=== PATIENT | female | born 1950 | race Caucasian/White ===

== ENCOUNTER 2017-04-27 08:18 | Emergency (ER) | payer MEDICARE, BC, OTHER ==
[2017-04-27] MEDS ORDERED: ONDANSETRON 4 MG TAB.RAPDIS PO ONE (08:58)
--- NOTE | 2017-04-27 08:58 | ER Document Report ---
ED Extremity Problem, Upper - General Mode of Arrival: Ambulatory Information source: Patient TRAVEL OUTSIDE OF THE [place] IN LAST 30 DAYS: No - HPI Patient complains to provider of: Left, Elbow Onset: Just prior to arrival Recent injury: Possibly Context: Fall <JENNIFER KENDALL - Last Filed: 04/27/17 10:30> <MONTEZTED - Last Filed: 04/27/17 16:03> - General Chief Complaint: Arm Injury Stated Complaint: FALL/ARM INJURY Time Seen by Provider: 04/27/17 08:49 Notes: Patient is a 66-year-old female who presents to the emergency department today with complaints of left upper extremity pain after a fall just prior to arrival. Patient states that she tripped over her dog on her way out the door this morning. Patient also has a skin tear to her right forearm. Patient states her tetanus is up to date. Patient complains of pain with extension of the left elbow. (JENNIFER KENDALL) - Related Data Allergies/Adverse Reactions: No Known Allergies Allergy (Verified 04/27/17 08:24) Home Medications: Current Home Medications Multivitamin [Multivitamins] 1 tab PO DAILY 04/27/17 [History] Past Medical History - General Information source: Patient, [facility] Records - Social History Smoking Status: Never Smoker Cigarette use (# per day): No Chew tobacco use (# tins/day): No Frequency of alcohol use: None Drug Abuse: None Lives with: Family Family History: Reviewed & Not Pertinent Patient has suicidal ideation: No Patient has homicidal ideation: No - Past Medical History Cardiac Medical History: Reports: Hx Coronary Artery Disease, Hx Hypercholesterolemia, Hx Hypertension Past Surgical History: Reports: Hx Cardiac Surgery - pacemaker, Hx Orthopedic Surgery - right ankle <JENNIFER KENDALL - Last Filed: 04/27/17 10:30> Review of Systems - Review of Systems Constitutional: No symptoms reported EENT: No symptoms reported Cardiovascular: No symptoms reported Respiratory: No symptoms reported Gastrointestinal: No symptoms reported Genitourinary: No symptoms reported Female Genitourinary: No symptoms reported Musculoskeletal: See HPI, Joint pain - left elbow Skin: No symptoms reported Hematologic/Lymphatic: No symptoms reported Neurological/Psychological: No symptoms reported -: Yes All other systems reviewed and negative <JENNIFER KENDALL - Last Filed: 04/27/17 10:30> Physical Exam <JENNIFER KENDALL - Last Filed: 04/27/17 10:30> <TED ABDUL - Last Filed: 04/27/17 16:03> - Vital signs Vitals: Temp Pulse Resp BP Pulse Ox 97.8 F 59 L 20 99/67 L 96 04/27/17 08:23 04/27/17 08:23 04/27/17 08:23 04/27/17 08:23 04/27/17 08:23 - Notes Notes: PHYSICAL EXAM GENERAL: Alert, interacts well. Appears mildly uncomfortable. HEAD: Normocephalic, atraumatic. EYES: Pupils equal, round, and reactive to light. Extraocular movements intact. ENT: Oral mucosa moist, tongue midline. NECK: Full range of motion. Supple. Trachea midline. LUNGS: No respiratory distress. ABDOMEN: Non-distended. EXTREMITIES: No left olecranon or condylar tenderness with palpation. Minimal amount of pain with flexion of left elbow. Pain with extension of left elbow, unable to extend greater than 90 secondary to pain. No shoulder or humerus tenderness with palpation. Able to shrug left shoulder without pain. Moves other 3 extremities spontaneously without difficulty, no cyanosis. NEUROLOGICAL: Alert and oriented x3. Normal speech. PSYCH: Normal affect, normal mood. SKIN: Warm, dry, normal turgor. Superficial skin tear to the radial portion of the right forearm. No active bleeding. Approximately 1.5 cm in diameter. ( JENNIFER KENDALL) Course <JENNIFER KENDALL - Last Filed: 04/27/17 10:30> <TED ABDUL - Last Filed: 04/27/17 16:03> - Re-evaluation Re-evalutation: 04/27/17 10:15 On reexamination, patient is tender over the left proximal humerus which was not present during initial exam. Patient not able to elevate her left arm. ( JNENIFER KENDALL) 04/27/17 12:31 Initial elbow x-ray was read as negative by radiology, on my viewing of this x- ray I do see a proximal humerus fracture that is incompletely imaged, discussed with radiology and they agree, patient sent back for imaging of the entire humerus, shows a spiral fracture of the proximal humeral diaphysis. Patient placed in shoulder immobilizer, discussed with Dr. Contreras who agrees to see the patient as an outpatient within the next 2 days. Patient will be provided with pain control, counseled on using stool softeners and discharged to home. (TED ABDUL) - Vital Signs Vital signs: Temp Pulse Resp BP Pulse Ox 97.8 F 61 20 113/43 L 95 04/27/17 12:38 04/27/17 12:38 04/27/17 08:24 04/27/17 12:38 04/27/17 12:38 Procedures - Immobilization left humerus Pre-Proc Neuro Vasc Exam: Normal Immobilizer type: Shoulder immobilizer Performed by: PCT Post-Proc Neuro Vasc Exam: Normal, Unchanged from pre-exam Alignment checked and good: Yes <TED ABDUL - Last Filed: 04/27/17 16:03> Discharge <JENNIFER KENDALL - Last Filed: 04/27/17 10:30> <TED ABDUL - Last Filed: 04/27/17 16:03> - Discharge Clinical Impression: Fracture, humerus, proximal Qualifiers: Encounter type: initial encounter Fracture type: closed Fracture morphology: other fracture Fracture alignment: nondisplaced Laterality: left Qualified Code( s): S42.295A - Other nondisplaced fracture of upper end of left humerus, initial encounter for closed fracture Condition: Stable Disposition: HOME, SELF-CARE Additional Instructions: Fracture Proximal Humerus There is a fracture at the upper end of the humerus, near the shoulder joint. Your physician has assessed the fracture's severity and has determined that it will heal well without surgery or "setting." The typical shoulder fracture doesn't need a cast. It's best treated by binding the arm down with a special sling. Ice packs are used to reduce pain and swelling. After early healing has occurred, iboce-al-wyjvnn exercises are prescribed for the shoulder. Complete healing may take three to six weeks, depending on the age of the patient and the severity of the fracture. Call the doctor or return at once if the arm becomes numb, or if pain or swelling become severe. Please dissolve 1 scoop of MiraLAX in a glass of water once a day to treat constipation. You may increase to twice a day if needed to create soft bowel movements and you may decrease to every other day if you develop diarrhea. You may add on a stimulant laxative such as Senokot or Dulcolax if needed. Prescriptions: Ondansetron [Zofran Odt 4 mg Tablet] 1 - 2 tab PO Q4H PRN #15 tab.rapdis PRN Reason: For Nausea/Vomiting Oxycodone HCl/Acetaminophen [Percocet 5-325 mg Tablet] 1 - 2 tab PO Q4H PRN #25 tablet PRN Reason: Referrals: WALT CONTRERAS MD [ACTIVE STAFF] - Follow up tomorrow (call for an appointment) Scribe Attestation: 04/27/17 16:03 I personally performed the services described in the documentation, reviewed and edited the documentation which was dictated to the scribe in my presence, and it accurately records my words and actions. (TED ABDUL) Scribe Documentation - Scribe Written by Tashi:: Tashi Erickson, 04/27/2017 1057 acting as scribe for :: Montez <JENNIFER KENDALL - Last Filed: 04/27/17 10:30>
--- NOTE | 2017-04-27 09:38 | RADIOLOGY REPORT (SQ) ---
EXAM DESCRIPTION: ELBOW LEFT OVER 2 VIEWS COMPLETED DATE/TIME: 04/27/2017 9:20 am REASON FOR STUDY: fall, cannot extend COMPARISON: None. NUMBER OF VIEWS: Three views. TECHNIQUE: AP, lateral, and oblique radiographic images acquired of the left elbow. LIMITATIONS: None. FINDINGS: MINERALIZATION: Normal. BONES: No acute fracture or dislocation. No worrisome bone lesions. JOINT: No effusion. SOFT TISSUES: No soft tissue swelling. No foreign body. OTHER: No other significant finding. IMPRESSION: NEGATIVE STUDY OF THE LEFT ELBOW. NO RADIOGRAPHIC EVIDENCE OF ACUTE INJURY. TECHNICAL DOCUMENTATION: JOB ID: [id number] [employer]- All Rights Reserved
[2017-04-27] MEDS ORDERED: HYDROMORPHONE HCL INJ/PF 2 MG/ML AMPULE IM ONE (10:12)
--- NOTE | 2017-04-27 11:56 | RADIOLOGY REPORT (SQ) ---
EXAM DESCRIPTION: HUMERUS LEFT COMPLETED DATE/TIME: 04/27/2017 11:21 am REASON FOR STUDY: humerus fracture COMPARISON: None. NUMBER OF VIEWS: Two views. TECHNIQUE: Two radiographic images were acquired of the left humerus to include elbow and shoulder i n at least one projection. LIMITATIONS: None. FINDINGS: MINERALIZATION: Normal. BONES: There is spiral fracture of proximal humeral diaphysis. The lower into the fracture is at abo ut the mid point of the humerus. There is no significant angulation. There is about 10 mm displacem ent. SOFT TISSUES: No obvious swelling or foreign body. OTHER: No other significant finding. IMPRESSION: Fracture of the left humeral diaphysis. TECHNICAL DOCUMENTATION: JOB ID: [id number] [employer]- All Rights Reserved
[2017-04-27] MEDS ORDERED: OXYCODONE-ACETAMINOPHEN 5-325 MG TABLET PO ONE (12:29)
[2017-04-27 12:49] VITALS: BP 113/43
== END 2017-04-27 12:52 | disposition home or self-care (01) ==
LOC: ER 08:18
DX: S42.202A Unspecified fracture of upper end of left humerus, initial encounter for closed fracture (principal); S51.811A Laceration without foreign body of right forearm, initial encounter; W01.0XXA Fall on same level from slipping, tripping and stumbling without subsequent striking against object, initial encounter; Y92.008 Other place in unspecified non-institutional (private) residence as the place of occurrence of the external cause; I25.10 Atherosclerotic heart disease of native coronary artery without angina pectoris; I10 Essential (primary) hypertension; Z95.0 Presence of cardiac pacemaker
CPT/HCPCS: 99283; 96372; 73080; 73060; L3650; A9270 ×2; J1170; S0119